=== PATIENT | male | born 1990 | race Caucasian/White ===

== ENCOUNTER 2016-08-13 03:25 | Emergency (ER) | payer OTHER ==
--- NOTE | 2016-08-13 03:30 | PDOC ---
History of Present Illness - General Chief Complaint: Chest Pain Stated Complaint: CHEST PAIN Time Seen by Provider: 08/13/16 03:29 - History of Present Illness Initial Comments: 08/13/16 03:36 This 26-year-old man with a history of HIV, depression, anxiety, and 2 previous episodes of pericarditis presents with 3 day history of intermittent mild left- sided chest pain. At approximately 2 AM today, patient was awakened by more severe, sharp, left-sided chest pain. He has not had any recent flulike symptoms, fever/chills, cough or shortness of breath. He is currently on HAART therapy which he has continues to take as prescribed. Patient had first episode of pericarditis at age 15 without specific cause for pericarditis found. Likewise, he presented to [facility] ER with that sided chest pain last November. At that time, EKG showed no specific indications for acute pericarditis and laboratory work was unremarkable. He was treated presumptively for acute pericarditis with anti-inflammatory medication and had cardiology follow-up. Patient states that he had last seen his cargo checker a few months ago and was told to follow up as needed. C4 counts continue to be in the 800 range with undetectable viral load. He has been told he has large red blood cells but no anemia at this time; follow -up with hematology is scheduled in approximately 10 days Patient denies any recent emotional stress or strenuous exercise. He states he has not had any recent chest wall injury or overuse Patient is a smoker. Otherwise, there are no risk factors for coronary artery disease Past History - Past Medical History Allergies/Adverse Reactions: Allergies Allergy/AdvReac Type Severity Reaction Status Date / Time Penicillins Allergy Unknown Verified 02/20/16 05:09 Home Medications: Ambulatory Orders Bupropion HCl [Wellbutrin -] 75 mg PO BID 01/10/16 Elviteg/Jacinta/Emtric/Tenofo Ala [Genvoya Tablet] 1 each PO DAILY 01/10/16 Clonazepam [Klonopin] 1 mg PO BID 02/20/16 Hydrocodone/Acetaminophen [Winchester 5-325 Tablet] 1 each PO QID PRN #20 tablet MDD 4 02/20/16 Oxycodone HCl/Acetaminophen [Percocet 5-325 mg Tablet] 1 - 2 tab PO Q6H PRN #12 tab MDD 4 02/20/16 Asthma: No Diabetes: No HTN: No Hypercholesterolemia: No HIV: Yes Psychiatric Problems: (PTSD) - Immunization History Immunization Up to Date: Yes - Psycho/Social/Smoking Cessation Hx Anxiety: No Suicidal Ideation: No Smoking Status: Yes Smoking History: Current every day smoker Have you smoked in the past 12 months: Yes Number of Cigarettes Smoked Daily: 4 If you are a former smoker, when did you quit?: 2014 'Breaking Loose' booklet given: 08/01/15 Hx Alcohol Use: Yes (OCCASIONAL) Drug/Substance Use Hx: No Substance Use Type: None, Marijuana Hx Substance Use Treatment: Yes Review of Systems - Review of Systems Able to Perform ROS?: Yes Comments:: 12 point review of systems is negative except for what is noted in the history of present illness *Physical Exam - Vital Signs Last Vital Signs Temp Pulse Resp BP Pulse Ox 98.2 F 119 H 17 125/90 98 08/13/16 03:28 08/13/16 03:28 08/13/16 03:28 08/13/16 03:28 08/13/16 03:28 - Physical Exam Comments: GENERAL: Adult male, intermittently tearful, in moderate distress secondary to left-sided chest pain HEAD: Normal with no signs of trauma. EYES: PERRLA, EOMI, sclera anicteric, conjunctiva clear. ENT: Ears normal, nares patent, oropharynx clear without exudates. Dry mucous membranes. NECK: Normal range of motion, supple without lymphadenopathy, JVD, or masses. CHEST WALL: No tenderness/crepitus/step offs LUNGS: Breath sounds equal, clear to auscultation bilaterally. No wheezes, and no crackles. HEART:Regular rate and rhythm, normal S1 and S2 without murmur, rub or gallop. ABDOMEN:.normal bowel sounds No guarding,tenderness or rebound.No masses No distention. EXTREMITIES: Normal range of motion, no edema. No clubbing or cyanosis. No erythema, or tenderness. NEUROLOGICAL: Cranial nerves II through XII grossly intact. Normal speech. No focal neurological deficits. MUSCULOSKELETAL: Back non-tender to palpation, no CVA tenderness SKIN: Warm, Dry, normal turgor, no rashes or lesions noted. 12-lead electrocardiogram sores sinus tachycardia 113 bpm; intervals, wave forms and axis are all normal. No evidence of acute ST or T-wave elevation; no T wave abnormalities. No significant change from EKG dated 11/29/15 Portable chest x-ray reveals no evidence of active pulmonary disease. Cardiac silhouette is non-dilated Heart Score/ECG Review - History History: Slightly suspicious - Electrocardiogram EKG: Normal - Age Age: </= 45 - Risk Factors Risk Factors Heart Score: Yes Smoking History Based on the list above the patient has:: 1-2 risk factors - Troponin Troponin: </= normal limit - Score Heart Score - Total: 1 Eligibility Checklist For AMI - INCLUSION CRITERIA Prolonged (>30 minutes)ischemic pain: No 12 Lead ECG indicates AMI: No ST elevation >1 mm in at least 2 limb leads: No ST elevation>2 mm in at least 2 contiguous precordial leads: No LBBB with clinical symptoms consistent with an AMI: No - EXCLUSION CRITERIA Active internal bleeding or hx of hemorrhagic diathesis: No Known bleeding diathesis: No Major surgery or serious trauma within the previous 6 weeks: No History of cerebrovascular accident(CVA): No History of central nervous system structural abnormality: No History of malignant hypertension or uncontrolled HTN: No Hemostatic defects secondary to severe hepatic/renal disease: No Diabetic hemorrhagic retinopathy: No or recent delivery(within 6 weeks): No Patients currently receiving oral anticoagulants(INR>2): No ED Treatment Course - LABORATORY CBC & Chemistry Diagram: 08/13/16 03:47 08/13/16 03:47 - ADDITIONAL ORDERS Additional order review: Laboratory Results 08/13/16 08/13/16 08/13/16 03:47 03:47 03:47 INR 1.06 Sodium 142 Potassium 4.2 Chloride 104 Carbon Dioxide 23 Anion Gap 15 BUN 13 D Creatinine 1.0 Creat Clearance w eGFR > 60 Random Glucose 82 Calcium 8.9 Total Bilirubin 0.4 D AST 15 D ALT 17 D Alkaline Phosphatase 81 Creatine Kinase Cancelled Troponin I Cancelled Total Protein 7.3 Albumin 4.3 08/13/16 03:45 INR Sodium Potassium Chloride Carbon Dioxide Anion Gap BUN Creatinine Creat Clearance w eGFR Random Glucose Calcium Total Bilirubin AST ALT Alkaline Phosphatase Creatine Kinase 140 Troponin I < 0.02 Total Protein Albumin 08/13/16 03:47 RBC 3.71 L MCV 100.2 H MCHC 33.6 RDW 13.2 MPV 9.3 D Neutrophils % 57.1 D Lymphocytes % 29.7 D Monocytes % 10.4 H Eosinophils % 1.7 D Basophils % 1.1 D - RADIOLOGY Radiology Studies Ordered: Category Date Time Status CHEST X-RAY PORTABLE* [RAD] Stat Radiology 08/13/16 04:03 Taken - Medications Given in the ED: ED Medications Discontinued Medications Generic Name Dose Route Start Last Admin Trade Name Abundio PRN Reason Stop Dose Admin Sodium Chloride 1,000 mls @ 1,000 mls/hr 08/13/16 03:34 08/13/16 03:40 Normal Saline - IV 08/13/16 04:33 1,000 mls/hr ASDIR STA Administration Ketorolac Tromethamine 30 mg 08/13/16 03:34 08/13/16 03:41 Toradol Injection - IVPUSH 08/13/16 03:35 30 mg ONCE ONE Administration Morphine Sulfate 2 mg 08/13/16 04:03 08/13/16 04:07 Morphine Injection - IVPUSH 08/13/16 04:04 2 mg ONCE ONE Administration Progress Note - Progress Note Progress Note: patient given a liter normal saline IV, 30 mg of Toradol IV CBC/ESR/CRP, comp chemistry profile sent Medical Decision Making - Medical Decision Making 08/13/16 05:31 Patient continued to have pain after Toradol 30 mg IV. Patient given 2 mg morphine IV with good control of this pain. Laboratory evaluation is essentially normal with no elevation of white blood cell count. MCV is 100 as patient had related in his history. There is no evidence of anemia or thrombocytopenia. ESR is normal at 3 Chemistry profiles essentially normal without evidence of electrolyte abnormalities, renal failure or abnormalities of LFTs Cardiac enzymes are not elevated Because there are no signs of inflammation/infection evident in diagnostic workup, etiology of chest pain unclear. He should follow-up with his cargo checker within the next 48 hours. He will also be given referral information for our cardiology group senior erp consultant ([facility]) in case he cannot get in touch with his previous cargo checker. 08/13/16 06:37 Patient slept soundly after 2 mg of morphine IV. He is alert, comfortable and without new complaints. He will be discharged with instructions to follow-up with his ID doctor regarding need for anti- inflammatories (he will not be discharged on nonsteroidal anti-inflammatory medication in light of the risk for acute kidney injury with concurrent use of Genoya). Patient understands this and agrees to the plan. He will return to the emergency room if he has any recurrent pain *DC/Admit/Observation/Transfer Diagnosis at time of Disposition: Atypical chest pain - Discharge Dispostion Disposition: HOME Condition at time of disposition: Stable - Referrals Referrals: Jose De Oliveira MD [Primary Care Provider] - Bella Gamble MD [Staff Physician] - - Patient Instructions Printed Discharge Instructions: DI for Atypical Chest Pain Additional Instructions: check with infectioud disease doctor regarding need for anti-inflammatory med as discussed followup with your cargo checker or Dr Armas group within 48 hours return to ER if you have recurrent pain or develop fever/ difficulty breathing followup with sinter feeder as scheduled
[2016-08-13 03:33] VITALS: BP 125/90; PULSE 119; TEMP 98.2; BMI 22.1
[2016-08-13] MEDS ORDERED: SODIUM CHLORIDE 1,000 ML IV STA (03:34)
[2016-08-13] MEDS ORDERED: KETOROLAC TROMETHAMINE 30 MG/1 ML VIAL IVPUSH ONE (03:34)
[2016-08-13] MEDS ORDERED: KETOROLAC TROMETHAMINE 30 MG/1 ML VIAL ONE (03:42)
[2016-08-13] MEDS ORDERED: morphine CARPU-JECT 2 MG/1 ML DISP.SYRIN IVPUSH ONE (04:03)
[2016-08-13] MEDS ORDERED: morphine CARPU-JECT 2 MG/1 ML DISP.SYRIN ONE (04:09)
[2016-08-13 04:21] LABS: BASOPHIL 1.1 % (0-2.0); EOSINOPHIL 1.7 % (0-4.5); MCH 33.7 pg (25.7-33.7); MCHC 33.6 g/dl (32.0-35.9); MEAN CELL VOLUME 100.2 fl (80-96); MEAN PLT VOLUME 9.3 fl (7.5-11.1); NEUTROPHILS 57.1 % (42.8-82.8); PLATELET COUNT 219 K/MM3 (134-434); RDW 13.2 % (11.9-15.9); WHITE BLOOD COUNT 7.2 K/mm3 (4.0-10.0)
[2016-08-13 04:30] LABS: INR 1.06 (0.82-1.09); PROTHROMBIN TIME (PATIENT) 11.7 SEC (9.98-11.88)
[2016-08-13 04:41] LABS: ALBUMIN 4.3 g/dl (3.4-5.0); ALK PHOS 81 U/L (45-117); ANION GAP 15 (8-16); BILIRUBIN,TOTAL 0.4 mg/dL (0.2-1.0); CALCIUM 8.9 mg/dL (8.5-10.1); CO2 23 mmol/L (21-32); COCKROFT - GAULT 109.61; GLUCOSE,RANDOM 82 mg/dL (74-106); SGOT/AST 15 U/L (15-37); SGPT/ALT 17 U/L (12-78); TOT PROT 7.3 g/dl (6.4-8.2)
[2016-08-13 04:55] LABS: TROPONIN I < 0.02 ng/ml (0.00-0.05)
--- NOTE | 2016-08-13 14:21 | EKG ---
Test Reason : Blood Pressure : / mmHG Vent. Rate : 113 BPM Atrial Rate : 113 BPM P-R Int : 124 ms QRS Dur : 092 ms QT Int : 328 ms P-R-T Axes : 096 053 054 degrees QTc Int : 449 ms SINUS TACHYCARDIA OTHERWISE NORMAL ECG NO PREVIOUS ECGS AVAILABLE Confirmed by SERENA MENENDEZ MD ([id number]) on 08/13/2016 2:21:29 PM Referred By: MD SHORE Confirmed By:SERENA MENENDEZ MD
== END 2016-08-13 06:38 | disposition home or self-care (01) ==
LOC: FER 03:25
PROC: 3E0333Z Introduction of Anti-inflammatory into Peripheral Vein, Percutaneous Approach (ICD-10-PCS; principal; 2016-08-13)
PROC: 3E033NZ Introduction of Analgesics, Hypnotics, Sedatives into Peripheral Vein, Percutaneous Approach (ICD-10-PCS; 2016-08-13)
PROC: 3E0337Z Introduction of Electrolytic and Water Balance Substance into Peripheral Vein, Percutaneous Approach (ICD-10-PCS; 2016-08-13)
DX: R07.89 Other chest pain (principal); Z21 Asymptomatic human immunodeficiency virus [HIV] infection status; F41.8 Other specified anxiety disorders; F43.10 Post-traumatic stress disorder, unspecified; F17.210 Nicotine dependence, cigarettes, uncomplicated
CPT/HCPCS: 36415; 71010-TC; 80053; 82550; 84484; 85025; 85610; 85651; 93005; 99285-25